=== PATIENT | male | born 1970 | race Caucasian/White ===

== ENCOUNTER 2021-01-08 11:30 | Emergency (ER) | payer SELFPAY ==
[2021-01-08] MEDS ORDERED: BROMFED DM COU473 ML PO (14:17)
[2021-01-08] MEDS ORDERED: AUGMENTIN 875-1 EACH PO (14:20)
[2021-01-08] MEDS ORDERED: ZITHROMAX250 MG PO (14:20)
[2021-01-08] MEDS ORDERED: PROBIOTIC1 EAC1 PO (14:20)
[2021-01-08 14:23] LABS: HEMOGLOBIN 13.9 gm/dl (14.0-17.5); RED BLOOD COUNT 4.77 M/UL (4.20-5.50); WHITE BLOOD COUNT 8.8 K/UL (4.5-11.0)
[2021-01-08 14:50] LABS: BUN/CREATININE RATIO 22 (0-10)
== END 2021-01-08 15:07 | disposition home or self-care (01) ==
LOC: ER1 11:30
PROVIDERS: Nurse Practitioner
DX: J18.9 Pneumonia, unspecified organism (principal); E11.9 Type 2 diabetes mellitus without complications; F17.210 Nicotine dependence, cigarettes, uncomplicated; Z88.1 Allergy status to other antibiotic agents; Z20.822 Contact with and (suspected) exposure to COVID-19
CPT/HCPCS: 0240U; 71045; 80053; 85025; 99283

== ENCOUNTER 2021-02-15 10:19 | Emergency (ER) | payer BC ==
[~2021-02-15 10:19] MED LIST: AUGMENTIN 875-1 EACH PO; BROMFED DM COU473 ML PO; PROBIOTIC1 EAC1 PO; ZITHROMAX250 MG PO
== END 2021-02-15 12:17 | disposition home or self-care (01) ==
LOC: ER1 10:19
DX: J06.9 Acute upper respiratory infection, unspecified (principal); E11.9 Type 2 diabetes mellitus without complications; I10 Essential (primary) hypertension; F17.200 Nicotine dependence, unspecified, uncomplicated; Z88.2 Allergy status to sulfonamides; Z20.822 Contact with and (suspected) exposure to COVID-19
CPT/HCPCS: 0240U; 71045; 87081; 87880; 99283

== ENCOUNTER 2021-07-07 07:43 | Emergency (ER) | payer BC ==
[2021-07-07 08:53] LABS: HEMOGLOBIN 14.9 gm/dl (14.0-17.5); RED BLOOD COUNT 5.08 M/UL (4.20-5.50); WHITE BLOOD COUNT 8.7 K/UL (4.5-11.0)
[2021-07-07 09:19] LABS: BUN/CREATININE RATIO 16 (0-10)
[2021-07-07] MEDS ORDERED: BENZONATATE200 MG PO (12:01)
[2021-07-07] MEDS ORDERED: OMNICEF 300 MG300 MG PO (12:01)
== END 2021-07-07 12:32 | disposition home or self-care (01) ==
LOC: ER1 07:43
PROVIDERS: Physician Assistant
DX: J84.9 Interstitial pulmonary disease, unspecified (principal); E11.9 Type 2 diabetes mellitus without complications; F17.200 Nicotine dependence, unspecified, uncomplicated; Z88.1 Allergy status to other antibiotic agents; Z20.822 Contact with and (suspected) exposure to COVID-19
CPT/HCPCS: 0240U; 71046; 80053; 82550; 82553; 84484; 85025; 93005; 99285

== ENCOUNTER 2021-08-02 20:38 | Emergency (ER) | payer BC ==
[~2021-08-02 20:38] MED LIST changes: +BENZONATATE200 MG PO; +OMNICEF 300 MG300 MG PO
== END 2021-08-02 22:28 | disposition home or self-care (01) ==
LOC: ER1 20:38
DX: U07.1 COVID-19 (principal); E11.9 Type 2 diabetes mellitus without complications; F17.210 Nicotine dependence, cigarettes, uncomplicated; Z79.84 Long term (current) use of oral hypoglycemic drugs; Z79.82 Long term (current) use of aspirin; Z88.2 Allergy status to sulfonamides
CPT/HCPCS: 0240U; 71045; 87081; 87880; 99283

== ENCOUNTER 2021-10-13 07:41 | Emergency (ER) | payer BC ==
[2021-10-13 08:42] LABS: HEMOGLOBIN 13.7 gm/dl (14.0-17.5); RED BLOOD COUNT 4.72 M/UL (4.20-5.50); WHITE BLOOD COUNT 7.6 K/UL (4.5-11.0)
[2021-10-13 09:19] LABS: BUN/CREATININE RATIO 18 (0-10)
[2021-10-13] MEDS ORDERED: IBUPROFEN800 MG PO (12:32)
== END 2021-10-13 13:34 | disposition home or self-care (01) ==
LOC: ER1 07:41
PROVIDERS: Physician Assistant
DX: J06.9 Acute upper respiratory infection, unspecified (principal); J40 Bronchitis, not specified as acute or chronic; E11.9 Type 2 diabetes mellitus without complications; K21.9 Gastro-esophageal reflux disease without esophagitis; E78.5 Hyperlipidemia, unspecified; F17.200 Nicotine dependence, unspecified, uncomplicated; Z20.822 Contact with and (suspected) exposure to COVID-19; Z79.82 Long term (current) use of aspirin; Z79.84 Long term (current) use of oral hypoglycemic drugs; Z79.899 Other long term (current) drug therapy
CPT/HCPCS: 71045; 80053; 82550; 82553; 84484; 85025; 85379; 93005; 96374; 99284; J2405; U0002